=== PATIENT | female | born 1995 | race American Indian/Alaskan Native ===

== ENCOUNTER 2017-03-03 10:44 | Emergency (ER) | payer BC ==
[2017-03-03 10:45] VITALS: BMI 23.8
[2017-03-03 10:52] VITALS: TEMP 99.1
--- NOTE | 2017-03-03 11:28 | ED PDOC ---
Arrival/HPI - General Chief Complaint: Abdominal Pain Time Seen by Provider: 03/03/17 11:22 Historian: Patient - History of Present Illness Narrative History of Present Illness (Text): 03/03/17 11:25 21-year-old female presents today with a one-week history of left lower abdominal pain. Patient describes the pain as an intermittent pressure. Also complaining of a two-week history of thick white vaginal discharge. She also complaining of a one-week history of left leg tightness and heaviness. Patient denies a history of recent travel. Denies control usage. Patient denies chest pain or shortness of breath. Denies abdominal pain. Denies nausea or vomiting. Patient denies fevers or chills. No medications have been taken for pain at home. Patient states she has not been sexually active in 5 months. Denies any urinary symptoms. No other complaints. Time/Duration: 1 week Symptom Onset: Gradual Symptom Course: Intermittent Quality: Pressure Severity Level: 4 Past Medical History - Provider Review Nursing Documentation Reviewed: Yes - Travel History Have you recently traveled outside [place] w/in the past 3 mons?: No - Infectious Disease Hx of Infectious Diseases: None - Tetanus Immunization Tetanus Immunization: Up to Date - Cardiac Hx Cardiac Disorders: No - Pulmonary Hx Respiratory Disorders: Yes Hx Asthma: Yes - Neurological Hx Neurological Disorder: No - HEENT Hx HEENT Disorder: No - Renal Hx Renal Disorder: No - Endocrine/Metabolic Hx Endocrine Disorders: No - Hematological/Oncological Hx Blood Disorders: No - Integumentary Hx Dermatological Disorder: No - Musculoskeletal/Rheumatological Hx Musculoskeletal Disorders: No - Gastrointestinal Hx Gastrointestinal Disorders: No - Genitourinary/Gynecological Hx Genitourinary Disorders: No - Psychiatric Hx Psychophysiologic Disorder: No Hx Substance Use: No - Past Surgical History Past Surgical History: No Previous - Anesthesia Hx Anesthesia: No Family/Social History - Physician Review Nursing Documentation Reviewed: Yes Family/Social History: Unknown Family HX Smoking Status: Never Smoked Hx Alcohol Use: No Hx Substance Use: No Allergies/Home Meds Allergies/Adverse Reactions: Allergies No Known Allergies Allergy (Verified 03/03/17 10:52) Home Medications: Home Meds Medication Instructions Recorded Confirmed No Known Home Med 03/03/17 03/03/17 Review of Systems - Review of Systems Constitutional: absent: Fatigue, Fevers Respiratory: absent: SOB, Cough Cardiovascular: absent: Chest Pain, Palpitations Gastrointestinal: Abdominal Pain. absent: Constipation, Diarrhea, Nausea, Vomiting Genitourinary Female: Vaginal Discharge. absent: Dysuria, Frequency, Hematuria , Vaginal Bleeding Musculoskeletal: Arthralgias (left leg pain). absent: Back Pain, Neck Pain Skin: absent: Rash, Pruritis Neurological: absent: Headache, Dizziness Psychiatric: absent: Anxiety, Depression Physical Exam Vital Signs Reviewed: Yes Vital Signs Temp Pulse Resp BP Pulse Ox 03/03/17 14:53 85 17 130/81 98 03/03/17 13:25 87 17 127/75 100 03/03/17 10:48 99.1 F 100 H 16 127/75 100 Temperature: Afebrile Blood Pressure: Normal Pulse: Tachycardic Respiratory Rate: Normal Appearance: Positive for: Well-Appearing, Non-Toxic, Comfortable Pain Distress: None Mental Status: Positive for: Alert and Oriented X 3 - Systems Exam Head: Present: Atraumatic Mouth: Present: Moist Mucous Membranes Neck: Present: Normal Range of Motion Respiratory/Chest: Present: Clear to Auscultation, Good Air Exchange. No: Respiratory Distress, Accessory Muscle Use Cardiovascular: Present: Regular Rate and Rhythm, Normal S1, S2. No: Murmurs Abdomen: Present: Normal Bowel Sounds. No: Tenderness, Distention, Peritoneal Signs, Rebound, Guarding Genitourinary/Pelvic Exam: Present: Normal External Genitalia, Vaginal Discharge (thick white vaginal dischargee), Cervical os Closed, Other ( chaparoned by Clarissa tena RN). No: Vaginal Bleeding, Vaginal Lesions, Adenexal Tenderness, Adenexal Mass, Cervical Motion Tendernes, Odor Back: Present: Normal Inspection. No: CVA Tenderness, Midline Tenderness, Paraspinal Tenderness Upper Extremity: Present: Normal Inspection Lower Extremity: Present: Normal Inspection, CALF TENDERNESS, NORMAL PULSES, Normal ROM, Neurovascularly Intact, Capillary Refill < 2 s. No: Swelling Neurological: Present: GCS=15, Speech Normal Skin: Present: Warm, Dry, Normal Color. No: Rashes Psychiatric: Present: Alert, Oriented x 3 Medical Decision Making ED Course and Treatment: 03/03/17 11:28 21yr old female with llq abdominal pain and vaginal discharge. Also with left leg pain. cbc wnl cmp wnl lipase wnl UA; wnl gc/chlamydia: pending Transvaginal US: FINDINGS: UTERUS: Measures 8.2 x 4.2 x 5.0 cm. Normal in size and appearance. No fibroid or other mass lesion seen. ENDOMETRIUM: Measures 10 mm in diameter. Unremarkable. CERVIX: No cervical abnormality identified. RIGHT OVARY: Measures 3.4 x 1.6 x 3.2 cm. No solid mass. Normal flow. LEFT OVARY: Measures 2.7 x 1.7 x 2.7 cm. No solid mass. Normal flow. FREE FLUID: Minimal free fluid in the cul-de-sac OTHER FINDINGS: None. IMPRESSION: Minimal free fluid in the cul-de-sac- most consistent in this age group with recent follicular cyst rupture. No adnexal masses. Otherwise unremarkable Venous duplex left leg;FINDINGS: The visualized deep venous system of the left lower extremity is sonographically normal and compressible. Normal wave forms and augmentation are seen. There is no sonographic evidence for deep venous thrombosis in the visualized segments of the left lower extremity. IMPRESSION: 1. No sonographic evidence for deep venous thrombosis in the visualized segments of the left lower extremity. 03/03/17 14:13 pt with thick white discharge; will treat with diflucan for yeast infection; pt does not want to be prophylactically treated for gonorrhea/chlamydia. Will follow cultures. Patient nontoxic well-appearing no distress with stable vital signs. I discussed the results of that for the patient advised follow-up with primary care physician within the next 2 days. Advised me to return if symptoms worsen or persist or if new concerning symptoms develop Patient verbalizes understanding of discharge instructions and need for immediate followup. all aspects of this case were discussed the attending of record. impression; vaginal discharge, abdominal pain, sulema, leg pain Tylenol every 4 hours as needed for pain Increase fluids Follow-up with primary care physician within the next 2 days Follow-up with [facility] within the next 2 days Return immediately if symptoms worsen or persist or if new concerning symptoms develop. - Lab Interpretations Lab Results: 03/03/17 11:30 03/03/17 11:30 Lab Results 03/03/17 11:30: WBC 3.8 L D, RBC 4.98, Hgb 13.4, Hct 40.1, MCV 80.5, MCH 26.9, MCHC 33.4, RDW 13.9, Plt Count 223, MPV 10.4, Gran % 54.9, Lymph % (Auto) 33.8, [place] % (Auto) 8.7 H, Eos % (Auto) 2.1, Baso % (Auto) 0.5, Gran # 2.08, Lymph # 1.3, [place] # 0.3, Eos # 0.1, Baso # 0.02 03/03/17 11:30: Sodium 141, Potassium 3.6, Chloride 107, Carbon Dioxide 26, Anion Gap 12, BUN 9, Creatinine 0.7, Est GFR ( Amer) > 60, Est GFR (Non- Af Amer) > 60, Random Glucose 91, Calcium 9.6, Total Bilirubin 0.6, AST 23, ALT 39, Alkaline Phosphatase 66, Total Protein 6.9, Albumin 4.2, Globulin 2.7, Albumin/Globulin Ratio 1.6, Lipase 91 03/03/17 11:30: Urine Color Yellow, Urine Appearance Clear, Urine pH 7.0, Ur Specific [place] 1.010, Urine Protein Negative, Urine Glucose (UA) Negative, Urine Ketones Negative, Urine Blood Negative, Urine Nitrate Negative, Urine Bilirubin Negative, Urine Urobilinogen 0.2, Ur Leukocyte Esterase Negative - RAD Interpretation Radiology Orders: 03/03/17 11:22 TRANSVAGINAL [US] Stat 03/03/17 11:23 DUPLEX LOWER EXTRM VEIN LEFT [US] Stat - Medication Orders Current Medication Orders: Discontinued Medications Fluconazole (Diflucan) 150 mg PO STAT STA PRN Reason: Protocol Stop: 03/03/17 14:21 Last Admin: 03/03/17 15:00 Dose: 150 mg Disposition/Present on Arrival - Present on Arrival Any Indicators Present on Arrival: No History of DVT/PE: No History of Uncontrolled Diabetes: No Urinary Catheter: No History of Decub. Ulcer: No History Surgical Site Infection Following: None - Disposition Have Diagnosis and Disposition been Completed?: Yes Diagnosis: Vaginal discharge, Abdominal pain, Leg pain Disposition: HOME/ ROUTINE Disposition Time: 14:23 Patient Plan: Discharge Condition: GOOD Discharge Instructions (ExitCare): Abdominal Pain (ED), Leg Pain (ED), Vaginal Discharge (ED) Additional Instructions: Tylenol every 4 hours as needed for pain Increase fluids Follow-up with primary care physician within the next 2 days Follow-up with [facility] within the next 2 days Return immediately if symptoms worsen or persist or if new concerning symptoms develop. Referrals: Wendy Grant MD [Staff Provider] - Follow up with primary Edwige Martinez MD [Staff Provider] - Follow up with primary [facility] [Outside] - Follow up with [facility] [Outside] - Follow up with primary Forms: Frequent Browser ([place]), WORK NOTE
[2017-03-03 11:53] LABS: BASO # 0.02 K/mm3 (0.0-2.0); BASO % 0.5 % (0.0-3.0); EOS # 0.1 (0.0-0.7); EOS % 2.1 % (1.5-5.0); GRAN # 2.08 (1.4-6.5); GRAN % 54.9 % (50.0-68.0); HEMATOCRIT 40.1 % (36.0-48.0); LYMPH # 1.3 (1.2-3.4); LYMPH % 33.8 % (22.0-35.0); MEAN CELL VOLUME 80.5 fl (80.0-105.0); MEAN CORPUSCULAR HEMOGLOBIN 26.9 pg (25.0-35.0); MEAN CORPUSCULAR HGB CONC 33.4 g/dl (31.0-37.0); MEAN PLATELET VOLUME 10.4 fl (7.0-11.0); MONO # 0.3 (0.1-0.6); MONO % 8.7 % (1.0-6.0); RED CELL DISTRIBUTION WIDTH 13.9 % (11.5-14.5); WHITE BLOOD COUNT 3.8 10^3/ul (4.5-11.0)
[2017-03-03 11:56] LABS: URINE BILIRUBIN NEGATIVE (NEGATIVE); URINE BLOOD NEGATIVE (NEGATIVE); URINE GLUCOSE (UA) NEGATIVE (NEGATIVE); URINE KETONE NEGATIVE (NEGATIVE); URINE LEUKOCYTE ESTERASE NEGATIVE Leu/uL (NEGATIVE); URINE PROTEIN NEGATIVE mg/dL (<30 mg/dL); URINE UROBILINOGEN 0.2 E.U./dL (<1 E.U./dL)
[2017-03-03 11:57] LABS: URINE APPEARANCE CLEAR (CLEAR); URINE COLOR YELLOW (YELLOW)
[2017-03-03 12:03] LABS: ALB/GLOB RATIO 1.6 (1.1-1.8); ALKALINE PHOSPHATASE 66 U/L (38-126); ALT/SGPT 39 U/L (7-56); AST/SGOT 23 U/L (14-36); BILIRUBIN,TOTAL 0.6 mg/dL (0.2-1.3); BLOOD UREA NITROGEN 9 mg/dL (7-21); CALCIUM 9.6 mg/dL (8.4-10.5); CARBON DIOXIDE 26 mmol/L (21-33); CHLORIDE 107 mmol/L (98-107); GFR AFRICAN-AMERICAN > 60; GLUCOSE,RANDOM 91 mg/dL (70-110); LIPASE 91 U/L (23-300); POTASSIUM 3.6 mmol/L (3.6-5.0); SODIUM 141 mmol/L (132-148); TOTAL PROTEIN 6.9 g/dL (5.8-8.3)
--- NOTE | 2017-03-03 13:19 | US ---
PROCEDURE: Left lower extremity venous US HISTORY: Leg pain and swelling. Evaluate for DVT. PHYSICIAN(S): Louie Glass MD. TECHNIQUE: Duplex sonography and color-flow Doppler with graded compression were used to evaluate the deep venous system of the left lower extremity. FINDINGS: The visualized deep venous system of the left lower extremity is sonographically normal and compressible. Normal wave forms and augmentation are seen. There is no sonographic evidence for deep venous thrombosis in the visualized segments of the left lower extremity. IMPRESSION: 1. No sonographic evidence for deep venous thrombosis in the visualized segments of the left lower extremity.
[2017-03-03 13:26] VITALS: RESP 17
--- NOTE | 2017-03-03 13:35 | US ---
HISTORY: Left-sided pain discomfort. 21-year-old female. LMP 02/06/2017 COMPARISON: None available. TECHNIQUE: Transvaginal FINDINGS: UTERUS: Measures 8.2 x 4.2 x 5.0 cm. Normal in size and appearance. No fibroid or other mass lesion seen. ENDOMETRIUM: Measures 10 mm in diameter. Unremarkable. CERVIX: No cervical abnormality identified. RIGHT OVARY: Measures 3.4 x 1.6 x 3.2 cm. No solid mass. Normal flow. LEFT OVARY: Measures 2.7 x 1.7 x 2.7 cm. No solid mass. Normal flow. FREE FLUID: Minimal free fluid in the cul-de-sac OTHER FINDINGS: None. IMPRESSION: Minimal free fluid in the cul-de-sac- most consistent in this age group with recent follicular cyst rupture. No adnexal masses. Otherwise unremarkable
[2017-03-03 14:54] VITALS: BP 130/81; PULSE 85; O2SAT 98
== END 2017-03-03 15:05 | disposition home or self-care (01) ==
LOC: ED 10:44
DX: N89.8 Other specified noninflammatory disorders of vagina (principal); R10.9 Unspecified abdominal pain; M79.605 Pain in left leg